=== PATIENT | female | born 1990 | race Caucasian/White ===

== ENCOUNTER 2016-09-21 12:28 | Emergency (ER) | payer OTHER ==
[~2016-09-21] VITALS: Ht 165.1 cm; Wt 97.5 kg
[~2016-09-21 12:28] MED LIST: ANAPROX DS550 MG PO; BACTRIM DS 8001 TA1 PO; CORDROL20 MG PO; CYCLOBENZAPRINE5 M3 PO; EPI-PEN1 MG/ML MR; FIORICET 325 MG1 TAB PO; FLAGYL500 MG PO; FLONASE0.05 MG/AC NS; HYDROCODONE BIT1 T11 PO; IMITREX50 MG PO; LOMOTIL 0.025 M1 TAB PO; LORATADINE10 MG PO; LOTRIMIN1% T; MELOXICAM7.5 MG PO; MOTRIN800 MG PO; MYCOLOG CREAM 115 GM PO; NAPROSYN500 MG PO; PHENERGAN25 M1 PO; PRENTAL 1 PLUS1 TAB PO; TRAMADOL HCL50 MG PO; VIBRA-TAB100 MG PO; VIBRAMYCIN100 MG PO; VICODIN 5/500 505 MG PO; VOLTAREN50 M1 PO; ZANTAC150 MG PO; ZITHROMAX Z PA250 MG PO; ZOFRAN ODT4 MG SL
[2016-10-22] MEDS ORDERED: TOPAMAX25 M3 PO (05:48)
[2016-10-22] MEDS ORDERED: Motrin,Rufen800 MG PO (05:48)
[2016-10-22] MEDS ORDERED: CYCLOBENZAPRINE5 M3 PO (05:48)
[2016-10-22] MEDS ORDERED: DOXYCYCLINE HY100 M3 PO (05:48)
[2016-11-27] MEDS ORDERED: CYCLOBENZAPRINE10 MG PO (19:27)
== END 2016-09-21 13:59 | disposition home or self-care (01) ==
LOC: ED 12:28
DX: S30.0XXA Contusion of lower back and pelvis, initial encounter (principal); F17.200 Nicotine dependence, unspecified, uncomplicated; Z88.0 Allergy status to penicillin; W19.XXXA Unspecified fall, initial encounter; Y93.89 Activity, other specified; Y92.9 Unspecified place or not applicable; Y99.9 Unspecified external cause status